=== PATIENT | female | born 1935 | race Caucasian/White ===

== ENCOUNTER 2016-05-22 16:32 | Outpatient (RCR) | payer MEDICARE ==
[2016-05-22] VITALS (15 sets, daily range): BP systolic 136–165; BP diastolic 54–74
[~2016-05-22] VITALS: Ht 154.9 cm; Wt 53.6 kg
--- NOTE | 2016-05-22 16:36 | NUR ---
Pt. arrives to 314 for platelet transfusion, ambulatory. Assisted to chair.
[2016-05-22] MEDS ORDERED: SODIUM CHLORIDE 250 ML IV ONE (16:55)
[2016-05-22] MEDS ORDERED: diphenhydrAMINE 25 MG (BENADRYL) TABLET PO ONE (17:00)
[2016-05-22] MEDS ORDERED: SODIUM CHLORIDE FLUSH 10 ML SYR IV SCH (17:00)
[2016-05-22] MEDS ORDERED: ACETAMINOPHEN 325 MG TAB (TYLENOL) PO ONE (17:00)
--- NOTE | 2016-05-22 17:44 | NUR ---
IV has been started to [facility], pre-meds have been given. 1st unit of platelets started at this time.
--- NOTE | 2016-05-22 18:00 | NUR ---
Pt. tolerating transfusion well without s/s of reaction. Rate increased to 300ml/hr. Addendum: 05/22/16 at 1801 by Ingris Murillo RN Rate increased to 200ml/hr.
--- NOTE | 2016-05-22 19:03 | NUR ---
1st unit of platelets completed without s/s of transfusion reaction. VSS.
--- NOTE | 2016-05-22 19:17 | NUR ---
2nd unit platelets started at this time.
--- NOTE | 2016-05-22 19:25 | NUR ---
MrsBird ThayerShantel sitting in recliner with feet elevated, BP cuff right arm, talking, smiling, respirations even non labored, platelets infusing R ac @ 60 ml/hr, denies any complaints or needs at this time.
--- NOTE | 2016-05-22 20:35 | NUR ---
Mrs. Funes ambulated to elevator and out to vehicle accompanied by this RN.
--- NOTE | 2016-05-22 20:35 | NUR ---
Platelet infusion complete, VS taken and recorded. IV removed left AC, denies any complaints at this time.
== END 2016-08-20 | disposition home or self-care (01) ==
LOC: EUOP 16:32 → MED/SURG 16:32 → EUOP 20:35
PROVIDERS: ATTEND Internal Medicine Hematology & Oncology
DX: D69.6 Thrombocytopenia, unspecified (principal); D46.A Refractory cytopenia with multilineage dysplasia
CPT/HCPCS: 36415; 36430; 85007; 85027; 85049; 86900; 86901; A9270; J7050; P9037

== ENCOUNTER 2016-05-25 09:39 | Outpatient (RCR) | payer MEDICARE ==
[2016-05-25 09:54] LABS: MEAN CORPUSCULAR HEMOGLOBIN 29.7 PG (26.0-34.0); MEAN CORPUSCULAR HGB CONC 33.9 g/dL (31.0-37.0); MEAN CORPUSCULAR VOLUME 88 FL (80-100); MEAN PLATELET VOLUME 9.6 FL (6.0-9.5); WHITE BLOOD COUNT 1.62 10^3uL (4.0-11.0)
[2016-05-25 10:29] LABS: PLATELET COUNT 17 10^3uL (150-450)
[2016-05-25 10:32] LABS: BAND NEUTROPHILS % 0 % (0-6); EOSINOPHILS % 0 % (0-4); LYMPHOCYTES # 0.9 #; MONOCYTES # 0.1 #; MONOCYTES % 5 % (3-11); SEGMENTED NEUTROPHILS % 40 % (51-67); TOTAL CELLS COUNTED 100
[2016-05-25 10:33] LABS: ANISOCYTOSIS SLIGHT; HYPOCHROMASIA SLIGHT; MICROCYTOSIS SLIGHT; RBC MORPH SEE REFERENCE (NORMAL)
[2016-06-16 09:48] LABS: MEAN CORPUSCULAR HEMOGLOBIN 30.3 PG (26.0-34.0); MEAN CORPUSCULAR VOLUME 89 FL (80-100); MEAN PLATELET VOLUME 10.3 FL (6.0-9.5)
[2016-06-16 09:55] LABS: PLATELET COUNT 16 10^3uL (150-450); WHITE BLOOD COUNT 1.45 10^3uL (4.0-11.0)
[2016-06-16 10:04] LABS: BAND NEUTROPHILS % 5 % (0-6); EOSINOPHILS % 0 % (0-4); LYMPHOCYTES # 0.9 #; MONOCYTES % 2 % (3-11); RBC MORPH NORMAL (NORMAL); SEGMENTED NEUTROPHILS % 29 % (51-67); TOTAL CELLS COUNTED 100
[2016-06-23 10:06] LABS: MEAN CORPUSCULAR HEMOGLOBIN 30.4 PG (26.0-34.0); MEAN CORPUSCULAR HGB CONC 33.7 g/dL (31.0-37.0); MEAN CORPUSCULAR VOLUME 90 FL (80-100); MEAN PLATELET VOLUME 12.1 FL (6.0-9.5); WHITE BLOOD COUNT 1.65 10^3uL (4.0-11.0)
[2016-06-23 10:35] LABS: PLATELET COUNT 22 10^3uL (150-450)
[2016-06-23 10:58] LABS: BAND NEUTROPHILS % 0 % (0-6); EOSINOPHILS % 2 % (0-4); LYMPHOCYTES # 0.9 #; MONOCYTES # 0.1 #; MONOCYTES % 9 % (3-11); RBC MORPH SEE REFERENCE (NORMAL); SEGMENTED NEUTROPHILS % 33 % (51-67); TOTAL CELLS COUNTED 100
[2016-06-23 10:59] LABS: ANISOCYTOSIS SLIGHT; MICROCYTOSIS SLIGHT
[2016-06-26 09:22] LABS: MEAN CORPUSCULAR HEMOGLOBIN 30.7 PG (26.0-34.0); MEAN CORPUSCULAR HGB CONC 33.9 g/dL (31.0-37.0); MEAN CORPUSCULAR VOLUME 91 FL (80-100)
[2016-06-26 09:53] LABS: WHITE BLOOD COUNT 1.19 10^3uL (4.0-11.0)
[2016-06-26 09:54] LABS: BAND NEUTROPHILS % 0 % (0-6); LYMPHOCYTES # 0.9 #; PLATELET COUNT 11 10^3uL (150-450); SEGMENTED NEUTROPHILS % 16 % (51-67)
[2016-06-26 09:55] LABS: EOSINOPHILS % 2 % (0-4); MONOCYTES # 0.1 #; MONOCYTES % 5 % (3-11); RBC MORPH NORMAL (NORMAL); TOTAL CELLS COUNTED 100
[2016-07-03 10:07] LABS: MEAN CORPUSCULAR HEMOGLOBIN 30.7 PG (26.0-34.0); MEAN CORPUSCULAR HGB CONC 33.7 g/dL (31.0-37.0); MEAN CORPUSCULAR VOLUME 91 FL (80-100); MEAN PLATELET VOLUME 8.8 FL (6.0-9.5); PLATELET COUNT 45 10^3uL (150-450)
[2016-07-03 10:23] LABS: WHITE BLOOD COUNT 0.93 10^3uL (4.0-11.0)
[2016-07-03 10:59] LABS: BAND NEUTROPHILS % 3 % (0-6); EOSINOPHILS % 1 % (0-4); LYMPHOCYTES # 0.6 #; MONOCYTES % 5 % (3-11); SEGMENTED NEUTROPHILS % 26 % (51-67)
[2016-07-03 11:00] LABS: RBC MORPH SEE REFERENCE (NORMAL); TOTAL CELLS COUNTED 100
[2016-07-03 11:01] LABS: ANISOCYTOSIS SLIGHT
[2016-07-06 09:02] LABS: MEAN CORPUSCULAR VOLUME 91 FL (80-100); MEAN PLATELET VOLUME 9.3 FL (6.0-9.5); PLATELET COUNT 44 10^3uL (150-450)
[2016-07-06 10:07] LABS: WHITE BLOOD COUNT 1.12 10^3uL (4.0-11.0)
[2016-07-06 10:20] LABS: BAND NEUTROPHILS % 0 % (0-6); EOSINOPHILS % 0 % (0-4); LYMPHOCYTES # 0.9 #; MONOCYTES # 0.1 #; MONOCYTES % 8 % (3-11); RBC MORPH NORMAL (NORMAL); SEGMENTED NEUTROPHILS % 15 % (51-67); TOTAL CELLS COUNTED 100
[2016-07-06 10:24] LABS: ALBUMIN 3.9 g/dL (3.4-5.0); ANION GAP 16.2 MEQ/L (3-15); CALCULATED IONIZED CALCIUM 4.6 mg/dL (3.8-4.6); TOTAL PROTEIN 6.8 g/dL (6.4-8.5)
== END 2016-08-23 | disposition home or self-care (01) ==
LOC: LAB 09:39
PROVIDERS: ATTEND Internal Medicine Hematology & Oncology
DX: D53.9 Nutritional anemia, unspecified (principal); D46.A Refractory cytopenia with multilineage dysplasia
CPT/HCPCS: 36415; 80053; 85025

== ENCOUNTER 2016-07-01 08:45 | Outpatient (RCR) | payer MEDICARE ==
[2016-06-30 10:01] LABS: MEAN CORPUSCULAR HEMOGLOBIN 30.4 PG (26.0-34.0); MEAN CORPUSCULAR VOLUME 92 FL (80-100); MEAN PLATELET VOLUME 10.3 FL (6.0-9.5)
[2016-06-30 10:10] LABS: PLATELET COUNT 11 10^3uL (150-450); WHITE BLOOD COUNT 0.99 10^3uL (4.0-11.0)
[2016-06-30 10:18] LABS: BAND NEUTROPHILS % 1 % (0-6); EOSINOPHILS % 0 % (0-4); LYMPHOCYTES # 0.7 #; MONOCYTES % 1 % (3-11); RBC MORPH SEE REFERENCE (NORMAL); SEGMENTED NEUTROPHILS % 25 % (51-67); TOTAL CELLS COUNTED 100
[2016-06-30 10:19] LABS: ANISOCYTOSIS SLIGHT; HYPOCHROMASIA SLIGHT
[2016-07-01] VITALS (14 sets, daily range): BP systolic 108–149; BP diastolic 45–67
[~2016-07-01] VITALS: Ht 154.9 cm; Wt 55.5 kg
--- NOTE | 2016-07-01 08:56 | NUR ---
Pt. arrives to 341 ambulatory, using cane, for blood and platelet transfusion. Neutropenic precautions instituted for noted low WBC count.
[2016-07-01] MEDS ORDERED: LMX 4 KIT (LIDOCAINE 4% 5 GM TUBE/TRANSPARENT DRESSING) TOP PRN (09:06)
[2016-07-01] MEDS ORDERED: NS 250 ML (IVPB) BAG IV SCH (09:06)
[2016-07-01] MEDS ORDERED: SODIUM CHLORIDE FLUSH 3 ML SYR IV PRN (09:06)
[2016-07-01] MEDS ORDERED: ACETAMINOPHEN 325 MG TAB (TYLENOL) PO SCH (09:06)
[2016-07-01] MEDS ORDERED: diphenhydrAMINE 25 MG (BENADRYL) TABLET PO SCH (09:06)
[2016-07-01] MEDS ORDERED: SODIUM CHLORIDE FLUSH 10 ML SYR IV PRN (09:06)
--- NOTE | 2016-07-01 09:20 | NUR ---
20g IV started to RFA x1 attempt. Flushes well.
--- NOTE | 2016-07-01 09:40 | NUR ---
Bottled water received from kitchen for pt. to take premeds. Premeds given at this time.
--- NOTE | 2016-07-01 09:59 | NUR ---
1st unit PRBC started at this time at 125ml/hr to RFA. VSS.
--- NOTE | 2016-07-01 10:19 | NUR ---
Pt. tolerating infusion well, rate increased to 150ml/hr.
--- NOTE | 2016-07-01 12:11 | NUR ---
1st unit PRBC complete. Pt. tolerated without s/s of reaction.
--- NOTE | 2016-07-01 12:31 | NUR ---
1st unit platelets started at this time. VSS.
--- NOTE | 2016-07-01 12:41 | NUR ---
Pt. just back to chair from restroom. Addendum: 07/01/16 at 1241 by Ingris Murillo RN Amended: Links added.
--- NOTE | 2016-07-01 13:28 | NUR ---
1st unit platelets complete. VSS. Pt. tolerated without s/s of reaction.
--- NOTE | 2016-07-01 13:38 | NUR ---
Pt. dismissed to home at this time via WC, accompanied out by RN.
== END 2016-09-28 | disposition home or self-care (01) ==
LOC: ICU 08:45 → EUOP 08:45
PROVIDERS: ATTEND Internal Medicine Hematology & Oncology
DX: D46.A Refractory cytopenia with multilineage dysplasia (principal); D53.9 Nutritional anemia, unspecified
CPT/HCPCS: 36415; 36430; 85025; 86850; 86900; 86901; 86920; A9270; J7050; P9037; P9040

== ENCOUNTER → 2016-08-04 | Outpatient (REF) | payer MEDICARE ==
[2016-08-04 11:00] LABS: MEAN CORPUSCULAR HEMOGLOBIN 29.4 PG (26.0-34.0); MEAN CORPUSCULAR HGB CONC 33.1 g/dL (31.0-37.0); MEAN CORPUSCULAR VOLUME 89 FL (80-100); MEAN PLATELET VOLUME 10.3 FL (6.0-9.5); PLATELET COUNT 68 10^3uL (150-450)
[2016-08-04 11:53] LABS: ANISOCYTOSIS MODERATE; BAND NEUTROPHILS % 1 % (0-6); EOSINOPHILS % 0 % (0-4); HYPOCHROMASIA SLIGHT; LYMPHOCYTES # 0.5 #; MONOCYTES # 0.1 #; MONOCYTES % 11 % (3-11); RBC MORPH SEE REFERENCE (NORMAL); SEGMENTED NEUTROPHILS % 35 % (51-67); TOTAL CELLS COUNTED 100
== END ==
LOC: LAB 10:32
PROVIDERS: ATTEND Internal Medicine Hematology & Oncology
DX: D53.9 Nutritional anemia, unspecified (principal)
CPT/HCPCS: 85025

== ENCOUNTER → 2016-08-07 | Outpatient (REF) | payer MEDICARE ==
[2016-08-07 13:54] LABS: MEAN CORPUSCULAR HGB CONC 33.2 g/dL (31.0-37.0); MEAN CORPUSCULAR VOLUME 90 FL (80-100); MEAN PLATELET VOLUME 9.7 FL (6.0-9.5); PLATELET COUNT 76 10^3uL (150-450)
[2016-08-07 14:10] LABS: ANISOCYTOSIS MODERATE; BAND NEUTROPHILS % 0 % (0-6); EOSINOPHILS % 2 % (0-4); HYPOCHROMASIA SLIGHT; LYMPHOCYTES # 0.7 #; MONOCYTES % 0 % (3-11); POIKILOCYTOSIS SLIGHT; RBC MORPH SEE REFERENCE (NORMAL); SEGMENTED NEUTROPHILS % 39 % (51-67); TOTAL CELLS COUNTED 100
== END ==
LOC: LAB 13:39
PROVIDERS: ATTEND Internal Medicine Hematology & Oncology
DX: D53.9 Nutritional anemia, unspecified (principal)
CPT/HCPCS: 85025

== ENCOUNTER → 2016-08-11 | Outpatient (REF) | payer MEDICARE ==
[2016-08-11 13:50] LABS: MEAN CORPUSCULAR HGB CONC 34.2 g/dL (31.0-37.0); MEAN CORPUSCULAR VOLUME 88 FL (80-100); MEAN PLATELET VOLUME 9.7 FL (6.0-9.5); PLATELET COUNT 78 10^3uL (150-450)
[2016-08-11 13:57] LABS: BAND NEUTROPHILS % 0 % (0-6); EOSINOPHILS % 0 % (0-4); LYMPHOCYTES # 0.9 #; MONOCYTES % 0 % (3-11); SEGMENTED NEUTROPHILS % 25 % (51-67); TOTAL CELLS COUNTED 100
[2016-08-11 13:58] LABS: ANISOCYTOSIS MODERATE; HYPOCHROMASIA SLIGHT; RBC MORPH SEE REFERENCE (NORMAL)
== END ==
LOC: LAB 11:32
PROVIDERS: ATTEND Internal Medicine Hematology & Oncology
DX: D53.9 Nutritional anemia, unspecified (principal)
CPT/HCPCS: 85025

== ENCOUNTER → 2016-08-14 | Outpatient (REF) | payer MEDICARE ==
[2016-08-14 11:46] LABS: MEAN CORPUSCULAR VOLUME 89 FL (80-100); MEAN PLATELET VOLUME 9.9 FL (6.0-9.5); PLATELET COUNT 77 10^3uL (150-450)
[2016-08-14 12:10] LABS: BAND NEUTROPHILS % 1 % (0-6); EOSINOPHILS % 0 % (0-4); LYMPHOCYTES # 0.5 #; MONOCYTES % 7 % (3-11); SEGMENTED NEUTROPHILS % 32 % (51-67); TOTAL CELLS COUNTED 100; WHITE BLOOD COUNT 0.96 10^3uL (4.0-11.0)
[2016-08-14 13:39] LABS: RBC MORPH NORMAL (NORMAL)
== END ==
LOC: LAB 10:38
PROVIDERS: ATTEND Internal Medicine Hematology & Oncology
DX: D53.9 Nutritional anemia, unspecified (principal); D46.A Refractory cytopenia with multilineage dysplasia
CPT/HCPCS: 85025

== ENCOUNTER 2016-08-18 12:37 | Outpatient (RCR) | payer MEDICARE ==
[2016-08-19] VITALS (11 sets, daily range): BP systolic 120–143; BP diastolic 56–73
[2016-08-19] MEDS ORDERED: SODIUM CHLORIDE FLUSH 10 ML ONE (11:27)
[2016-08-19] MEDS ORDERED: SODIUM CHLORIDE 250 ML ONE (12:04)
[2016-08-19] MEDS ORDERED: SODIUM CHLORIDE FLUSH 3 ML SYR IV PRN (12:10)
[2016-08-19] MEDS ORDERED: diphenhydrAMINE 25 MG (BENADRYL) TABLET PO SCH (12:10)
[2016-08-19] MEDS ORDERED: LMX 4 KIT (LIDOCAINE 4% 5 GM TUBE/TRANSPARENT DRESSING) TOP PRN (12:10)
[2016-08-19] MEDS ORDERED: NS 250 ML (IVPB) BAG IV SCH (12:10)
[2016-08-19] MEDS ORDERED: ACETAMINOPHEN 325 MG TAB (TYLENOL) PO SCH (12:10)
[2016-08-19] MEDS ORDERED: SODIUM CHLORIDE FLUSH 10 ML SYR IV PRN (12:10)
== END 2016-08-19 17:07 | disposition home or self-care (01) ==
LOC: EUOP 12:37 → MED/SURG 08-19 12:06 → EUOP 08-19 17:07
PROVIDERS: ATTEND Internal Medicine Hematology & Oncology
DX: D64.9 Anemia, unspecified (principal)
CPT/HCPCS: 36415; 36430; 85014; 85018; 86850; 86900; 86901; 86920; A9270; J7050; P9040; 85025; 99218

== ENCOUNTER → 2016-08-18 | Outpatient (REF) | payer MEDICARE ==
[2016-08-18 10:39] LABS: MEAN CORPUSCULAR HGB CONC 33.7 g/dL (31.0-37.0); MEAN CORPUSCULAR VOLUME 90 FL (80-100); MEAN PLATELET VOLUME 9.6 FL (6.0-9.5); PLATELET COUNT 83 10^3uL (150-450)
[2016-08-18 10:56] LABS: MEAN CORPUSCULAR HEMOGLOBIN 30.2 PG (26.0-34.0)
[2016-08-18 10:58] LABS: BAND NEUTROPHILS % 2 % (0-6); EOSINOPHILS % 1 % (0-4); LYMPHOCYTES # 0.5 #; MONOCYTES % 9 % (3-11); SEGMENTED NEUTROPHILS % 28 % (51-67); TOTAL CELLS COUNTED 100; WHITE BLOOD COUNT 0.83 10^3uL (4.0-11.0)
[2016-08-18 10:59] LABS: RBC MORPH NORMAL (NORMAL)
== END ==
LOC: LAB 10:21
PROVIDERS: ATTEND Internal Medicine Hematology & Oncology
DX: D53.9 Nutritional anemia, unspecified (principal); D46.A Refractory cytopenia with multilineage dysplasia
CPT/HCPCS: 85025

== ENCOUNTER → 2016-08-21 | Outpatient (REF) | payer MEDICARE ==
[2016-08-21 11:11] LABS: MEAN CORPUSCULAR HEMOGLOBIN 29.9 PG (26.0-34.0); MEAN CORPUSCULAR HGB CONC 34.3 g/dL (31.0-37.0); MEAN CORPUSCULAR VOLUME 87 FL (80-100); MEAN PLATELET VOLUME 9.7 FL (6.0-9.5); PLATELET COUNT 78 10^3uL (150-450)
[2016-08-21 11:45] LABS: BAND NEUTROPHILS % 0 % (0-6); EOSINOPHILS % 0 % (0-4); LYMPHOCYTES # 0.5 #; MONOCYTES % 14 % (3-11); SEGMENTED NEUTROPHILS % 28 % (51-67); WHITE BLOOD COUNT 0.83 10^3uL (4.0-11.0)
[2016-08-21 11:46] LABS: ANISOCYTOSIS SLIGHT; POIKILOCYTOSIS SLIGHT; RBC MORPH SEE REFERENCE (NORMAL); TOTAL CELLS COUNTED 100
== END ==
LOC: LAB 10:46
PROVIDERS: ATTEND Internal Medicine Hematology & Oncology
DX: D53.9 Nutritional anemia, unspecified (principal)
CPT/HCPCS: 85025

== ENCOUNTER → 2016-08-25 | Outpatient (REF) | payer MEDICARE ==
[2016-08-25 10:23] LABS: MEAN CORPUSCULAR HEMOGLOBIN 29.4 PG (26.0-34.0); MEAN CORPUSCULAR HGB CONC 33.3 g/dL (31.0-37.0); MEAN CORPUSCULAR VOLUME 88 FL (80-100); MEAN PLATELET VOLUME 10.3 FL (6.0-9.5); PLATELET COUNT 65 10^3uL (150-450)
[2016-08-25 10:25] LABS: WHITE BLOOD COUNT 0.76 10^3uL (4.0-11.0)
[2016-08-25 10:26] LABS: ANISOCYTOSIS MARKED; BAND NEUTROPHILS % 0 % (0-6); EOSINOPHILS % 2 % (0-4); HYPOCHROMASIA SLIGHT; LYMPHOCYTES # 0.4 #; MONOCYTES % 6 % (3-11); RBC MORPH SEE REFERENCE (NORMAL); SEGMENTED NEUTROPHILS % 26 % (51-67); TOTAL CELLS COUNTED 100
== END ==
LOC: LAB 10:10
PROVIDERS: ATTEND Internal Medicine Hematology & Oncology
DX: D53.9 Nutritional anemia, unspecified (principal); D46.A Refractory cytopenia with multilineage dysplasia
CPT/HCPCS: 85025

== ENCOUNTER → 2016-08-28 | Outpatient (REF) | payer MEDICARE ==
[2016-08-28 11:09] LABS: MEAN CORPUSCULAR HEMOGLOBIN 29.9 PG (26.0-34.0); MEAN CORPUSCULAR VOLUME 88 FL (80-100); MEAN PLATELET VOLUME 9.5 FL (6.0-9.5); PLATELET COUNT 81 10^3uL (150-450)
[2016-08-28 11:13] LABS: ANISOCYTOSIS MODERATE; BAND NEUTROPHILS % 0 % (0-6); EOSINOPHILS % 1 % (0-4); HYPOCHROMASIA SLIGHT; LYMPHOCYTES # 0.5 #; MONOCYTES % 1 % (3-11); POIKILOCYTOSIS SLIGHT; RBC MORPH SEE REFERENCE (NORMAL); SEGMENTED NEUTROPHILS % 33 % (51-67); TOTAL CELLS COUNTED 100; WHITE BLOOD COUNT 0.87 10^3uL (4.0-11.0)
== END ==
LOC: LAB 10:32
PROVIDERS: ATTEND Internal Medicine Hematology & Oncology
DX: D53.9 Nutritional anemia, unspecified (principal); D46.A Refractory cytopenia with multilineage dysplasia
CPT/HCPCS: 85025

== ENCOUNTER → 2016-09-01 | Outpatient (REF) | payer MEDICARE ==
[2016-09-01 12:42] LABS: MEAN CORPUSCULAR HEMOGLOBIN 29.1 PG (26.0-34.0); MEAN CORPUSCULAR HGB CONC 32.9 g/dL (31.0-37.0); MEAN CORPUSCULAR VOLUME 89 FL (80-100); PLATELET COUNT 92 10^3uL (150-450)
[2016-09-01 13:48] LABS: WHITE BLOOD COUNT 0.87 10^3uL (4.0-11.0)
[2016-09-01 13:50] LABS: BAND NEUTROPHILS % 0 % (0-6); LYMPHOCYTES # 0.5 #; SEGMENTED NEUTROPHILS % 29 % (51-67)
[2016-09-01 13:51] LABS: ANISOCYTOSIS SLIGHT; EOSINOPHILS % 0 % (0-4); MONOCYTES % 11 % (3-11); RBC MORPH SEE REFERENCE (NORMAL); TOTAL CELLS COUNTED 100
== END ==
LOC: LAB 10:04
PROVIDERS: ATTEND Internal Medicine Hematology & Oncology
DX: D46.A Refractory cytopenia with multilineage dysplasia (principal); D53.9 Nutritional anemia, unspecified
CPT/HCPCS: 85025

== ENCOUNTER → 2016-09-04 | Outpatient (REF) | payer MEDICARE ==
[2016-09-04 11:03] LABS: MEAN CORPUSCULAR HGB CONC 33.5 g/dL (31.0-37.0); MEAN CORPUSCULAR VOLUME 90 FL (80-100); MEAN PLATELET VOLUME 9.4 FL (6.0-9.5); PLATELET COUNT 109 10^3uL (150-450)
[2016-09-04 11:26] LABS: BAND NEUTROPHILS % 0 % (0-6); SEGMENTED NEUTROPHILS % 18 % (51-67); WHITE BLOOD COUNT 1.06 10^3uL (4.0-11.0)
[2016-09-04 11:27] LABS: ANISOCYTOSIS SLIGHT; EOSINOPHILS % 0 % (0-4); HYPOCHROMASIA SLIGHT; LYMPHOCYTES # 0.6 #; MONOCYTES # 0.2 #; MONOCYTES % 15 % (3-11); RBC MORPH SEE REFERENCE (NORMAL); TOTAL CELLS COUNTED 100
== END ==
LOC: LAB 10:36
PROVIDERS: ATTEND Internal Medicine Hematology & Oncology
DX: D53.9 Nutritional anemia, unspecified (principal); D46.A Refractory cytopenia with multilineage dysplasia
CPT/HCPCS: 85025

== ENCOUNTER → 2016-09-08 | Outpatient (REF) | payer MEDICARE ==
[2016-09-08 09:57] LABS: MEAN CORPUSCULAR HEMOGLOBIN 30.2 PG (26.0-34.0); MEAN CORPUSCULAR HGB CONC 33.1 g/dL (31.0-37.0); MEAN CORPUSCULAR VOLUME 91 FL (80-100); MEAN PLATELET VOLUME 9.4 FL (6.0-9.5); PLATELET COUNT 111 10^3uL (150-450)
[2016-09-08 10:16] LABS: WHITE BLOOD COUNT 0.89 10^3uL (4.0-11.0)
[2016-09-08 10:18] LABS: ANISOCYTOSIS MODERATE; BAND NEUTROPHILS % 1 % (0-6); EOSINOPHILS % 0 % (0-4); LYMPHOCYTES # 0.6 #; MONOCYTES % 12 % (3-11); RBC MORPH SEE REFERENCE (NORMAL); SEGMENTED NEUTROPHILS % 17 % (51-67); TOTAL CELLS COUNTED 100
== END ==
LOC: LAB 09:37
PROVIDERS: ATTEND Internal Medicine Hematology & Oncology
DX: D53.9 Nutritional anemia, unspecified (principal); D46.A Refractory cytopenia with multilineage dysplasia
CPT/HCPCS: 85025

== ENCOUNTER → 2016-09-11 | Outpatient (REF) | payer MEDICARE ==
[2016-09-11 10:30] LABS: MEAN CORPUSCULAR HEMOGLOBIN 30.4 PG (26.0-34.0); MEAN CORPUSCULAR VOLUME 92 FL (80-100); MEAN PLATELET VOLUME 9.7 FL (6.0-9.5); PLATELET COUNT 108 10^3uL (150-450)
[2016-09-11 10:37] LABS: BAND NEUTROPHILS % 0 % (0-6); EOSINOPHILS % 1 % (0-4); LYMPHOCYTES # 0.6 #; MONOCYTES % 13 % (3-11); RBC MORPH SEE REFERENCE (NORMAL); SEGMENTED NEUTROPHILS % 23 % (51-67); TOTAL CELLS COUNTED 100
[2016-09-11 10:38] LABS: ANISOCYTOSIS MODERATE; HYPOCHROMASIA SLIGHT; POIKILOCYTOSIS SLIGHT
[2016-09-11 10:50] LABS: WHITE BLOOD COUNT 0.99 10^3uL (4.0-11.0)
== END ==
LOC: LAB 10:11
PROVIDERS: ATTEND Internal Medicine Hematology & Oncology
DX: D46.A Refractory cytopenia with multilineage dysplasia (principal); D53.9 Nutritional anemia, unspecified
CPT/HCPCS: 85025

== ENCOUNTER 2016-09-15 14:25 | Outpatient (RCR) | payer MEDICARE ==
[2016-09-25 15:25] LABS: MEAN CORPUSCULAR HGB CONC 32.3 g/dL (31.0-37.0); MEAN PLATELET VOLUME 9.9 FL (6.0-9.5); PLATELET COUNT 120 10^3uL (150-450)
[2016-09-25 15:43] LABS: MEAN CORPUSCULAR HEMOGLOBIN 31.9 PG (26.0-34.0); MEAN CORPUSCULAR VOLUME 99 FL (80-100)
[2016-09-25 15:45] LABS: WHITE BLOOD COUNT 1.34 10^3uL (4.0-11.0)
[2016-09-25 15:46] LABS: BAND NEUTROPHILS % 2 % (0-6); EOSINOPHILS % 0 % (0-4); LYMPHOCYTES # 0.8 #; MONOCYTES # 0.1 #; MONOCYTES % 11 % (3-11); SEGMENTED NEUTROPHILS % 27 % (51-67); TOTAL CELLS COUNTED 100
[2016-09-25 15:47] LABS: ANISOCYTOSIS MARKED; POIKILOCYTOSIS SLIGHT; RBC MORPH SEE REFERENCE (NORMAL)
== END 2016-12-14 | disposition home or self-care (01) ==
LOC: EUOP 14:25
PROVIDERS: ATTEND Internal Medicine Hematology & Oncology
DX: D46.9 Myelodysplastic syndrome, unspecified (principal); D64.9 Anemia, unspecified
CPT/HCPCS: 36415; 85014; 85018; 85025

== ENCOUNTER → 2016-09-15 | Outpatient (REF) | payer MEDICARE ==
[2016-09-15 11:25] LABS: MEAN CORPUSCULAR HEMOGLOBIN 30.3 PG (26.0-34.0); MEAN CORPUSCULAR HGB CONC 32.5 g/dL (31.0-37.0); MEAN CORPUSCULAR VOLUME 93 FL (80-100); MEAN PLATELET VOLUME 10.3 FL (6.0-9.5); PLATELET COUNT 103 10^3uL (150-450)
[2016-09-15 11:53] LABS: WHITE BLOOD COUNT 1.03 10^3uL (4.0-11.0)
[2016-09-15 11:54] LABS: ANISOCYTOSIS MARKED; BAND NEUTROPHILS % 0 % (0-6); EOSINOPHILS % 0 % (0-4); HYPOCHROMASIA SLIGHT; LYMPHOCYTES # 0.4 #; MONOCYTES # 0.2 #; MONOCYTES % 16 % (3-11); POIKILOCYTOSIS SLIGHT; RBC MORPH SEE REFERENCE (NORMAL); SEGMENTED NEUTROPHILS % 37 % (51-67); TOTAL CELLS COUNTED 100
== END ==
LOC: LAB 10:44
PROVIDERS: ATTEND Internal Medicine Hematology & Oncology
DX: D46.A Refractory cytopenia with multilineage dysplasia (principal); D53.9 Nutritional anemia, unspecified
CPT/HCPCS: 85025

== ENCOUNTER → 2016-09-18 | Outpatient (REF) | payer MEDICARE ==
[2016-09-18 11:05] LABS: MEAN CORPUSCULAR HGB CONC 32.8 g/dL (31.0-37.0); MEAN CORPUSCULAR VOLUME 94 FL (80-100); MEAN PLATELET VOLUME 9.6 FL (6.0-9.5); PLATELET COUNT 117 10^3uL (150-450)
[2016-09-18 11:27] LABS: MEAN CORPUSCULAR HEMOGLOBIN 30.8 PG (26.0-34.0); WHITE BLOOD COUNT 0.86 10^3uL (4.0-11.0)
[2016-09-18 11:52] LABS: BAND NEUTROPHILS % 0 % (0-6); EOSINOPHILS % 0 % (0-4); LYMPHOCYTES # 0.5 #; MONOCYTES % 10 % (3-11); RBC MORPH SEE REFERENCE (NORMAL); SEGMENTED NEUTROPHILS % 30 % (51-67); TOTAL CELLS COUNTED 100
[2016-09-18 11:53] LABS: ANISOCYTOSIS SLIGHT
== END ==
LOC: LAB 10:53
PROVIDERS: ATTEND Internal Medicine Hematology & Oncology
DX: D46.A Refractory cytopenia with multilineage dysplasia (principal); D53.9 Nutritional anemia, unspecified
CPT/HCPCS: 85025

== ENCOUNTER → 2016-09-22 | Outpatient (REF) | payer MEDICARE ==
[2016-09-22 13:05] LABS: MEAN CORPUSCULAR HGB CONC 33.3 g/dL (31.0-37.0); MEAN CORPUSCULAR VOLUME 95 FL (80-100); MEAN PLATELET VOLUME 9.8 FL (6.0-9.5); PLATELET COUNT 124 10^3uL (150-450)
[2016-09-22 13:22] LABS: BAND NEUTROPHILS % 0 % (0-6); EOSINOPHILS % 1 % (0-4); LYMPHOCYTES # 0.7 #; MEAN CORPUSCULAR HEMOGLOBIN 31.7 PG (26.0-34.0); MONOCYTES % 2 % (3-11); RBC MORPH SEE REFERENCE (NORMAL); SEGMENTED NEUTROPHILS % 37 % (51-67); TOTAL CELLS COUNTED 100
[2016-09-22 13:23] LABS: ANISOCYTOSIS MODERATE; HYPOCHROMASIA SLIGHT; POIKILOCYTOSIS SLIGHT
== END ==
LOC: LAB 12:34
PROVIDERS: ATTEND Internal Medicine Hematology & Oncology
DX: D46.A Refractory cytopenia with multilineage dysplasia (principal); D53.9 Nutritional anemia, unspecified
CPT/HCPCS: 85025

== ENCOUNTER → 2016-09-25 | Outpatient (REF) | payer MEDICARE ==
[2016-09-25 10:38] LABS: MEAN CORPUSCULAR HGB CONC 32.2 g/dL (31.0-37.0); MEAN CORPUSCULAR VOLUME 96 FL (80-100); MEAN PLATELET VOLUME 9.5 FL (6.0-9.5); PLATELET COUNT 107 10^3uL (150-450)
[2016-09-25 10:53] LABS: MEAN CORPUSCULAR HEMOGLOBIN 30.9 PG (26.0-34.0); WHITE BLOOD COUNT 0.89 10^3uL (4.0-11.0)
[2016-09-25 10:54] LABS: ANISOCYTOSIS MODERATE; BAND NEUTROPHILS % 0 % (0-6); EOSINOPHILS % 0 % (0-4); HYPOCHROMASIA MODERATE; LYMPHOCYTES # 0.5 #; MONOCYTES % 3 % (3-11); POIKILOCYTOSIS SLIGHT; RBC MORPH SEE REFERENCE (NORMAL); SEGMENTED NEUTROPHILS % 36 % (51-67); TOTAL CELLS COUNTED 100
== END ==
LOC: LAB 10:25
PROVIDERS: ATTEND Internal Medicine Hematology & Oncology
DX: D53.9 Nutritional anemia, unspecified (principal)
CPT/HCPCS: 85025

== ENCOUNTER 2016-09-29 11:56 | Outpatient (RCR) | payer MEDICARE ==
[~2016-09-29] VITALS: Ht 154.9 cm; Wt 50.5 kg
[2016-09-30] VITALS (16 sets, daily range): BP systolic 116–135; BP diastolic 49–61
[2016-09-30] MEDS ORDERED: LMX 4 KIT (LIDOCAINE 4% 5 GM TUBE/TRANSPARENT DRESSING) TOP PRN (10:00)
[2016-09-30] MEDS ORDERED: SODIUM CHLORIDE FLUSH 3 ML SYR IV PRN (10:00)
[2016-09-30] MEDS ORDERED: diphenhydrAMINE 25 MG (BENADRYL) TABLET PO SCH (10:00)
[2016-09-30] MEDS ORDERED: NS 250 ML (IVPB) BAG IV SCH (10:00)
[2016-09-30] MEDS ORDERED: SODIUM CHLORIDE FLUSH 10 ML SYR IV PRN (10:00)
[2016-09-30] MEDS ORDERED: ACETAMINOPHEN 325 MG TAB (TYLENOL) PO SCH (10:00)
--- NOTE | 2016-09-30 11:07 | NUR ---
Pt. arrives at 1047 from admissions via for blood transfusion. Premeds given - see EMAR. 20g IV started to LFA x1 attempt. VSS.
--- NOTE | 2016-09-30 11:13 | NUR ---
1st unit LR-irradiated PRBC started at this time.
--- NOTE | 2016-09-30 11:32 | NUR ---
Pt. tolerating transfusion well. Denies dyspnea, chills, blurry vision or other s/s of reaction. Remains afebrile. VSS. Rate increased to 150ml/hr.
--- NOTE | 2016-09-30 13:26 | NUR ---
1st unit PRBC complete. Pt. tolerated infusion well. VSS.
--- NOTE | 2016-09-30 13:40 | NUR ---
2nd unit LR-irradiated PRBC initiated at this time. VSS.
--- NOTE | 2016-09-30 15:58 | NUR ---
2nd unit PRBC complete. Pt. tolerated well, without s/s of reaction.
--- NOTE | 2016-09-30 16:10 | NUR ---
Pt. discharged to home via WC with belongings, accompanied out by RN and friend.
== END 2016-09-30 16:10 | disposition home or self-care (01) ==
LOC: EUOP 11:56 → ICU 09-30 10:39 → EUOP 09-30 16:10
PROVIDERS: ATTEND Internal Medicine Hematology & Oncology
DX: D46.9 Myelodysplastic syndrome, unspecified (principal); D63.8 Anemia in other chronic diseases classified elsewhere
CPT/HCPCS: 36415; 36430; 85014; 85018; 86850; 86900; 86901; 86920; A9270; J7050; P9040

== ENCOUNTER → 2016-09-29 | Outpatient (REF) | payer MEDICARE ==
[2016-09-29 10:50] LABS: MEAN CORPUSCULAR HGB CONC 32.5 g/dL (31.0-37.0); MEAN PLATELET VOLUME 9.7 FL (6.0-9.5); PLATELET COUNT 115 10^3uL (150-450)
[2016-09-29 11:05] LABS: MEAN CORPUSCULAR HEMOGLOBIN 31.7 PG (26.0-34.0); MEAN CORPUSCULAR VOLUME 98 FL (80-100); WHITE BLOOD COUNT 0.74 10^3uL (4.0-11.0)
[2016-09-29 11:19] LABS: SEGMENTED NEUTROPHILS % 21 % (51-67)
[2016-09-29 11:20] LABS: ANISOCYTOSIS MARKED; BAND NEUTROPHILS % 1 % (0-6); EOSINOPHILS % 0 % (0-4); HYPOCHROMASIA SLIGHT; LYMPHOCYTES # 0.5 #; MONOCYTES % 11 % (3-11); RBC MORPH SEE REFERENCE (NORMAL); TOTAL CELLS COUNTED 100
== END ==
LOC: LAB 10:15
PROVIDERS: ATTEND Internal Medicine Hematology & Oncology
DX: D46.A Refractory cytopenia with multilineage dysplasia (principal); D53.9 Nutritional anemia, unspecified
CPT/HCPCS: 85025

== ENCOUNTER → 2016-10-02 | Outpatient (REF) | payer MEDICARE ==
[2016-10-02 10:10] LABS: MEAN CORPUSCULAR HEMOGLOBIN 30.8 PG (26.0-34.0); MEAN CORPUSCULAR HGB CONC 33.2 g/dL (31.0-37.0); MEAN CORPUSCULAR VOLUME 93 FL (80-100); MEAN PLATELET VOLUME 9.7 FL (6.0-9.5); PLATELET COUNT 103 10^3uL (150-450)
[2016-10-02 10:55] LABS: WHITE BLOOD COUNT 1.02 10^3uL (4.0-11.0)
[2016-10-02 10:56] LABS: BAND NEUTROPHILS % 1 % (0-6); EOSINOPHILS % 2 % (0-4); LYMPHOCYTES # 0.6 #; MONOCYTES # 0.1 #; MONOCYTES % 7 % (3-11); SEGMENTED NEUTROPHILS % 30 % (51-67)
[2016-10-02 10:57] LABS: ANISOCYTOSIS MARKED; RBC MORPH SEE REFERENCE (NORMAL); TOTAL CELLS COUNTED 100
== END ==
LOC: LAB 09:45
PROVIDERS: ATTEND Internal Medicine Hematology & Oncology
DX: D46.A Refractory cytopenia with multilineage dysplasia (principal); D53.9 Nutritional anemia, unspecified
CPT/HCPCS: 85025

== ENCOUNTER → 2016-10-06 | Outpatient (REF) | payer MEDICARE ==
[2016-10-06 11:40] LABS: MEAN CORPUSCULAR HEMOGLOBIN 30.9 PG (26.0-34.0); MEAN CORPUSCULAR HGB CONC 32.6 g/dL (31.0-37.0); MEAN CORPUSCULAR VOLUME 95 FL (80-100); MEAN PLATELET VOLUME 9.7 FL (6.0-9.5); PLATELET COUNT 74 10^3uL (150-450)
[2016-10-06 11:47] LABS: WHITE BLOOD COUNT 1.19 10^3uL (4.0-11.0)
[2016-10-06 11:48] LABS: ANISOCYTOSIS MODERATE; BAND NEUTROPHILS % 0 % (0-6); EOSINOPHILS % 1 % (0-4); HYPOCHROMASIA SLIGHT; LYMPHOCYTES # 0.7 #; MONOCYTES % 3 % (3-11); POIKILOCYTOSIS SLIGHT; RBC MORPH SEE REFERENCE (NORMAL); SEGMENTED NEUTROPHILS % 29 % (51-67); TOTAL CELLS COUNTED 100
== END ==
LOC: LAB 11:20
PROVIDERS: ATTEND Internal Medicine Hematology & Oncology
DX: D46.A Refractory cytopenia with multilineage dysplasia (principal); D53.9 Nutritional anemia, unspecified
CPT/HCPCS: 85025

== ENCOUNTER → 2016-10-09 | Outpatient (REF) | payer MEDICARE ==
[2016-10-09 09:45] LABS: MEAN CORPUSCULAR HEMOGLOBIN 30.4 PG (26.0-34.0); MEAN CORPUSCULAR HGB CONC 32.1 g/dL (31.0-37.0); MEAN CORPUSCULAR VOLUME 95 FL (80-100); MEAN PLATELET VOLUME 10.4 FL (6.0-9.5); PLATELET COUNT 103 10^3uL (150-450)
[2016-10-09 09:47] LABS: WHITE BLOOD COUNT 1.13 10^3uL (4.0-11.0)
[2016-10-09 09:53] LABS: ANISOCYTOSIS MODERATE; BAND NEUTROPHILS % 1 % (0-6); EOSINOPHILS % 0 % (0-4); HYPOCHROMASIA MODERATE; LYMPHOCYTES # 0.5 #; MONOCYTES # 0.1 #; MONOCYTES % 6 % (3-11); POIKILOCYTOSIS SLIGHT; RBC MORPH SEE REFERENCE (NORMAL); SEGMENTED NEUTROPHILS % 46 % (51-67); TOTAL CELLS COUNTED 100
== END ==
LOC: LAB 09:23
PROVIDERS: ATTEND Internal Medicine Hematology & Oncology
DX: D46.A Refractory cytopenia with multilineage dysplasia (principal); D53.9 Nutritional anemia, unspecified
CPT/HCPCS: 85025

== ENCOUNTER → 2016-10-13 | Outpatient (REF) | payer MEDICARE ==
[2016-10-13 09:38] LABS: MEAN CORPUSCULAR HEMOGLOBIN 30.8 PG (26.0-34.0); MEAN CORPUSCULAR HGB CONC 32.2 g/dL (31.0-37.0); MEAN CORPUSCULAR VOLUME 96 FL (80-100); MEAN PLATELET VOLUME 10.4 FL (6.0-9.5); PLATELET COUNT 101 10^3uL (150-450)
[2016-10-13 10:04] LABS: WHITE BLOOD COUNT 1.28 10^3uL (4.0-11.0)
[2016-10-13 10:07] LABS: BAND NEUTROPHILS % 0 % (0-6); EOSINOPHILS % 0 % (0-4); LYMPHOCYTES # 0.6 #; MONOCYTES # 0.1 #; MONOCYTES % 10 % (3-11)
[2016-10-13 10:08] LABS: ANISOCYTOSIS MODERATE; HYPOCHROMASIA SLIGHT; POIKILOCYTOSIS SLIGHT; RBC MORPH SEE REFERENCE (NORMAL); SEGMENTED NEUTROPHILS % 38 % (51-67); TOTAL CELLS COUNTED 100
== END ==
LOC: LAB 09:27
PROVIDERS: ATTEND Internal Medicine Hematology & Oncology
DX: D53.9 Nutritional anemia, unspecified (principal)
CPT/HCPCS: 85025

== ENCOUNTER → 2016-10-16 | Outpatient (REF) | payer MEDICARE ==
[2016-10-16 11:07] LABS: MEAN CORPUSCULAR HEMOGLOBIN 30.8 PG (26.0-34.0); MEAN PLATELET VOLUME 9.9 FL (6.0-9.5); PLATELET COUNT 101 10^3uL (150-450)
[2016-10-16 11:51] LABS: MEAN CORPUSCULAR HGB CONC 31.5 g/dL (31.0-37.0); MEAN CORPUSCULAR VOLUME 98 FL (80-100); WHITE BLOOD COUNT 1.04 10^3uL (4.0-11.0)
[2016-10-16 12:07] LABS: BAND NEUTROPHILS % 0 % (0-6); EOSINOPHILS % 2 % (0-4); LYMPHOCYTES # 0.4 #; MONOCYTES % 4 % (3-11); SEGMENTED NEUTROPHILS % 45 % (51-67); TOTAL CELLS COUNTED 100
[2016-10-16 12:08] LABS: ANISOCYTOSIS MARKED; HYPOCHROMASIA SLIGHT; RBC MORPH SEE REFERENCE (NORMAL)
== END ==
LOC: LAB 10:41
PROVIDERS: ATTEND Internal Medicine Hematology & Oncology
DX: D64.9 Anemia, unspecified (principal)
CPT/HCPCS: 85025

== ENCOUNTER 2016-10-20 16:37 | Outpatient (RCR) | payer MEDICARE ==
[~2016-10-20] VITALS: Ht 154.9 cm; Wt 50.5 kg
[2016-10-21] VITALS (16 sets, daily range): BP systolic 106–175; BP diastolic 47–82
--- NOTE | 2016-10-21 11:40 | NUR ---
Pt. received to 341 for blood transfusion. Arrived ambulatory, accompanied by family. Addendum: 10/21/16 at 1144 by Ingris Murillo RN Correction: arrived by
[2016-10-21] MEDS ORDERED: SODIUM CHLORIDE FLUSH 10 ML SYR IV PRN (11:55)
[2016-10-21] MEDS ORDERED: diphenhydrAMINE 25 MG (BENADRYL) TABLET PO SCH (11:55)
[2016-10-21] MEDS ORDERED: SODIUM CHLORIDE FLUSH 3 ML SYR IV PRN (11:55)
[2016-10-21] MEDS ORDERED: ACETAMINOPHEN 325 MG TAB (TYLENOL) PO SCH (11:55)
[2016-10-21] MEDS ORDERED: LMX 4 KIT (LIDOCAINE 4% 5 GM TUBE/TRANSPARENT DRESSING) TOP PRN (11:55)
[2016-10-21] MEDS ORDERED: NS 250 ML (IVPB) BAG IV SCH (11:55)
--- NOTE | 2016-10-21 14:30 | NUR ---
1st unit of PRBC completed.
--- NOTE | 2016-10-21 14:35 | NUR ---
2nd unit of PRBC started at 1435 unit # [id number].
--- NOTE | 2016-10-21 16:35 | NUR ---
2nd unit of PRBCs completed and flush bag infusing at this time.
--- NOTE | 2016-10-21 16:50 | NUR ---
IV catheter removed and drg applied using gauze and coban.
--- NOTE | 2016-10-21 17:10 | NUR ---
Pt discharge from unit per w/c and accompanied by Ronal HERNÁNDEZ.
== END 2016-12-30 18:31 | disposition home or self-care (01) ==
LOC: EUOP 16:37 → ICU 10-21 11:35 → EUOP 10-21 17:10
PROVIDERS: ATTEND Internal Medicine Hematology & Oncology
DX: D64.9 Anemia, unspecified (principal)
CPT/HCPCS: 36415; 36430; 85014; 85018; 86850; 86900; 86901; 86920; A9270; J7050; P9040

== ENCOUNTER → 2016-10-20 | Outpatient (REF) | payer MEDICARE ==
[2016-10-20 12:03] LABS: MEAN CORPUSCULAR HEMOGLOBIN 30.5 PG (26.0-34.0); MEAN PLATELET VOLUME 10.5 FL (6.0-9.5); PLATELET COUNT 132 10^3uL (150-450)
[2016-10-20 12:08] LABS: WHITE BLOOD COUNT 1.15 10^3uL (4.0-11.0)
[2016-10-20 12:09] LABS: MEAN CORPUSCULAR HGB CONC 30.9 g/dL (31.0-37.0); MEAN CORPUSCULAR VOLUME 99 FL (80-100)
[2016-10-20 12:10] LABS: BAND NEUTROPHILS % 0 % (0-6); EOSINOPHILS % 2 % (0-4); HYPOCHROMASIA MARKED; LYMPHOCYTES # 0.4 #; MONOCYTES # 0.1 #; MONOCYTES % 12 % (3-11); POIKILOCYTOSIS MODERATE; RBC MORPH SEE REFERENCE (NORMAL); SEGMENTED NEUTROPHILS % 50 % (51-67); TOTAL CELLS COUNTED 100
[2016-10-20 12:11] LABS: ANISOCYTOSIS MARKED
== END ==
LOC: LAB 11:53
PROVIDERS: ATTEND Internal Medicine Hematology & Oncology
DX: D46.9 Myelodysplastic syndrome, unspecified (principal)
CPT/HCPCS: 85025

== ENCOUNTER → 2016-10-23 | Outpatient (REF) | payer MEDICARE ==
[2016-10-23 11:06] LABS: MEAN CORPUSCULAR HGB CONC 32.7 g/dL (31.0-37.0); MEAN CORPUSCULAR VOLUME 96 FL (80-100); MEAN PLATELET VOLUME 10.4 FL (6.0-9.5); PLATELET COUNT 122 10^3uL (150-450)
[2016-10-23 11:13] LABS: WHITE BLOOD COUNT 1.34 10^3uL (4.0-11.0)
[2016-10-23 11:14] LABS: MEAN CORPUSCULAR HEMOGLOBIN 31.5 PG (26.0-34.0)
[2016-10-23 12:08] LABS: BAND NEUTROPHILS % 0 % (0-6); EOSINOPHILS % 0 % (0-4); MONOCYTES % 4 % (3-11); RBC MORPH SEE REFERENCE (NORMAL)
[2016-10-23 12:09] LABS: ANISOCYTOSIS SLIGHT
[2016-10-23 12:10] LABS: LYMPHOCYTES # 0.5 #; SEGMENTED NEUTROPHILS % 58 % (51-67); TOTAL CELLS COUNTED 100
== END ==
LOC: LAB 10:47
PROVIDERS: ATTEND Internal Medicine Hematology & Oncology
DX: D53.9 Nutritional anemia, unspecified (principal)
CPT/HCPCS: 85025

== ENCOUNTER → 2016-10-27 | Outpatient (REF) | payer MEDICARE ==
[2016-10-27 11:03] LABS: MEAN CORPUSCULAR HEMOGLOBIN 31.1 PG (26.0-34.0); MEAN PLATELET VOLUME 10.4 FL (6.0-9.5); PLATELET COUNT 101 10^3uL (150-450)
[2016-10-27 11:29] LABS: MEAN CORPUSCULAR HGB CONC 31.6 g/dL (31.0-37.0); MEAN CORPUSCULAR VOLUME 99 FL (80-100); WHITE BLOOD COUNT 0.94 10^3uL (4.0-11.0)
[2016-10-27 11:30] LABS: ANISOCYTOSIS MODERATE; BAND NEUTROPHILS % 0 % (0-6); EOSINOPHILS % 0 % (0-4); HYPOCHROMASIA SLIGHT; LYMPHOCYTES # 0.3 #; MONOCYTES % 9 % (3-11); RBC MORPH SEE REFERENCE (NORMAL); SEGMENTED NEUTROPHILS % 50 % (51-67); TOTAL CELLS COUNTED 100
== END ==
LOC: LAB 10:51
PROVIDERS: ATTEND Internal Medicine Hematology & Oncology
DX: D53.9 Nutritional anemia, unspecified (principal)
CPT/HCPCS: 85025

== ENCOUNTER → 2016-10-30 | Outpatient (REF) | payer MEDICARE ==
[2016-10-30 14:05] LABS: MEAN PLATELET VOLUME 10.2 FL (6.0-9.5); PLATELET COUNT 130 10^3uL (150-450)
[2016-10-30 14:39] LABS: MEAN CORPUSCULAR HEMOGLOBIN 31.6 PG (26.0-34.0); MEAN CORPUSCULAR VOLUME 99 FL (80-100); WHITE BLOOD COUNT 1.44 10^3uL (4.0-11.0)
[2016-10-30 15:00] LABS: ANISOCYTOSIS SLIGHT; BAND NEUTROPHILS % 0 % (0-6); EOSINOPHILS % 0 % (0-4); HYPOCHROMASIA SLIGHT; LYMPHOCYTES # 0.5 #; MONOCYTES # 0.1 #; MONOCYTES % 5 % (3-11); RBC MORPH SEE REFERENCE (NORMAL); SEGMENTED NEUTROPHILS % 60 % (51-67); TOTAL CELLS COUNTED 100
== END ==
LOC: LAB 13:46
PROVIDERS: ATTEND Internal Medicine Hematology & Oncology
DX: D46.A Refractory cytopenia with multilineage dysplasia (principal)
CPT/HCPCS: 85025

== ENCOUNTER → 2016-11-03 | Outpatient (REF) | payer MEDICARE ==
[2016-11-03 10:21] LABS: MEAN CORPUSCULAR HGB CONC 32.1 g/dL (31.0-37.0); MEAN PLATELET VOLUME 10.5 FL (6.0-9.5); PLATELET COUNT 118 10^3uL (150-450)
[2016-11-03 10:56] LABS: MEAN CORPUSCULAR HEMOGLOBIN 31.8 PG (26.0-34.0); MEAN CORPUSCULAR VOLUME 99 FL (80-100); WHITE BLOOD COUNT 0.98 10^3uL (4.0-11.0)
[2016-11-03 11:02] LABS: ANISOCYTOSIS MODERATE; BAND NEUTROPHILS % 3 % (0-6); EOSINOPHILS % 0 % (0-4); LYMPHOCYTES # 0.4 #; MONOCYTES % 6 % (3-11); RBC MORPH SEE REFERENCE (NORMAL); SEGMENTED NEUTROPHILS % 41 % (51-67); TOTAL CELLS COUNTED 100
== END ==
LOC: LAB 09:49
PROVIDERS: ATTEND Internal Medicine Hematology & Oncology
DX: D46.9 Myelodysplastic syndrome, unspecified (principal)
CPT/HCPCS: 85025

== ENCOUNTER → 2016-11-06 | Outpatient (REF) | payer MEDICARE ==
[2016-11-06 11:09] LABS: MEAN CORPUSCULAR HGB CONC 32.2 g/dL (31.0-37.0); MEAN PLATELET VOLUME 10.4 FL (6.0-9.5); PLATELET COUNT 113 10^3uL (150-450)
[2016-11-06 11:21] LABS: MEAN CORPUSCULAR HEMOGLOBIN 31.9 PG (26.0-34.0); MEAN CORPUSCULAR VOLUME 99 FL (80-100); WHITE BLOOD COUNT 0.86 10^3uL (4.0-11.0)
[2016-11-06 11:25] LABS: BAND NEUTROPHILS % 1 % (0-6); EOSINOPHILS % 0 % (0-4); LYMPHOCYTES # 0.5 #; MONOCYTES % 1 % (3-11); RBC MORPH SEE REFERENCE (NORMAL); SEGMENTED NEUTROPHILS % 35 % (51-67); TOTAL CELLS COUNTED 100
[2016-11-06 11:26] LABS: ANISOCYTOSIS MODERATE; HYPOCHROMASIA SLIGHT; POIKILOCYTOSIS SLIGHT
== END ==
LOC: LAB 10:37
PROVIDERS: ATTEND Emergency Medicine
DX: D53.9 Nutritional anemia, unspecified (principal)
CPT/HCPCS: 85025

== ENCOUNTER → 2016-11-10 | Outpatient (REF) | payer MEDICARE ==
[2016-11-10 10:43] LABS: MEAN PLATELET VOLUME 10.2 FL (6.0-9.5); PLATELET COUNT 121 10^3uL (150-450)
[2016-11-10 11:30] LABS: MEAN CORPUSCULAR HEMOGLOBIN 31.4 PG (26.0-34.0); MEAN CORPUSCULAR HGB CONC 31.7 g/dL (31.0-37.0); MEAN CORPUSCULAR VOLUME 99 FL (80-100); WHITE BLOOD COUNT 0.98 10^3uL (4.0-11.0)
[2016-11-10 11:54] LABS: ANISOCYTOSIS MODERATE; BAND NEUTROPHILS % 1 % (0-6); EOSINOPHILS % 2 % (0-4); HYPOCHROMASIA MODERATE; LYMPHOCYTES # 0.4 #; MONOCYTES % 8 % (3-11); RBC MORPH SEE REFERENCE (NORMAL); SEGMENTED NEUTROPHILS % 46 % (51-67); TOTAL CELLS COUNTED 100
[2016-11-10 12:00] LABS: NUCLEATED RED BLOOD CELLS 3
== END ==
LOC: LAB 10:00
PROVIDERS: ATTEND Internal Medicine Hematology & Oncology
DX: D53.9 Nutritional anemia, unspecified (principal)
CPT/HCPCS: 85025

== ENCOUNTER → 2016-11-13 | Outpatient (REF) | payer MEDICARE ==
[2016-11-13 10:59] LABS: MEAN CORPUSCULAR HGB CONC 31.9 g/dL (31.0-37.0); MEAN PLATELET VOLUME 10.5 FL (6.0-9.5); PLATELET COUNT 125 10^3uL (150-450)
[2016-11-13 11:27] LABS: BAND NEUTROPHILS % 0 % (0-6); MEAN CORPUSCULAR HEMOGLOBIN 31.4 PG (26.0-34.0); MEAN CORPUSCULAR VOLUME 98 FL (80-100); SEGMENTED NEUTROPHILS % 53 % (51-67)
[2016-11-13 11:28] LABS: EOSINOPHILS % 2 % (0-4); LYMPHOCYTES # 0.4 #; MONOCYTES % 4 % (3-11)
[2016-11-13 11:29] LABS: ANISOCYTOSIS SLIGHT; HYPOCHROMASIA MODERATE; RBC MORPH SEE REFERENCE (NORMAL); TOTAL CELLS COUNTED 100
== END ==
LOC: LAB 10:38
PROVIDERS: ATTEND Internal Medicine Hematology & Oncology
DX: D53.9 Nutritional anemia, unspecified (principal)
CPT/HCPCS: 85025

== ENCOUNTER → 2016-11-17 | Outpatient (REF) | payer MEDICARE ==
[2016-11-17 10:13] LABS: MEAN CORPUSCULAR HGB CONC 32.5 g/dL (31.0-37.0); MEAN CORPUSCULAR VOLUME 97 FL (80-100); MEAN PLATELET VOLUME 10.6 FL (6.0-9.5); PLATELET COUNT 127 10^3uL (150-450)
[2016-11-17 10:15] LABS: BAND NEUTROPHILS % 0 % (0-6); EOSINOPHILS % 0 % (0-4); LYMPHOCYTES # 0.4 #; MEAN CORPUSCULAR HEMOGLOBIN 31.6 PG (26.0-34.0); MONOCYTES % 0 % (3-11); SEGMENTED NEUTROPHILS % 42 % (51-67); TOTAL CELLS COUNTED 100; WHITE BLOOD COUNT 0.79 10^3uL (4.0-11.0)
[2016-11-17 10:16] LABS: ANISOCYTOSIS MODERATE; HYPOCHROMASIA SLIGHT; POIKILOCYTOSIS SLIGHT; POLYCHROMASIA SLIGHT; RBC MORPH SEE REFERENCE (NORMAL)
== END ==
LOC: LAB 10:00
PROVIDERS: ATTEND Internal Medicine Hematology & Oncology
DX: D53.9 Nutritional anemia, unspecified (principal)
CPT/HCPCS: 85025

== ENCOUNTER → 2016-11-20 | Outpatient (REF) | payer MEDICARE ==
[2016-11-20 14:26] LABS: MEAN CORPUSCULAR HGB CONC 32.7 g/dL (31.0-37.0); MEAN CORPUSCULAR VOLUME 96 FL (80-100); MEAN PLATELET VOLUME 10.8 FL (6.0-9.5); PLATELET COUNT 123 10^3uL (150-450)
[2016-11-20 14:53] LABS: MEAN CORPUSCULAR HEMOGLOBIN 31.5 PG (26.0-34.0)
[2016-11-20 14:58] LABS: BAND NEUTROPHILS % 3 % (0-6); LYMPHOCYTES # 0.7 #; SEGMENTED NEUTROPHILS % 33 % (51-67)
[2016-11-20 14:59] LABS: ANISOCYTOSIS MODERATE; EOSINOPHILS % 0 % (0-4); MONOCYTES # 0.1 #; MONOCYTES % 5 % (3-11); RBC MORPH SEE REFERENCE (NORMAL); TOTAL CELLS COUNTED 100
== END ==
LOC: LAB 13:29
PROVIDERS: ATTEND Internal Medicine Hematology & Oncology
DX: D46.A Refractory cytopenia with multilineage dysplasia (principal); D53.9 Nutritional anemia, unspecified
CPT/HCPCS: 85025

== ENCOUNTER → 2016-11-24 | Outpatient (REF) | payer MEDICARE ==
[2016-11-24 12:05] LABS: MEAN CORPUSCULAR HEMOGLOBIN 31.2 PG (26.0-34.0); MEAN CORPUSCULAR HGB CONC 32.4 g/dL (31.0-37.0); MEAN CORPUSCULAR VOLUME 96 FL (80-100); MEAN PLATELET VOLUME 10.4 FL (6.0-9.5); PLATELET COUNT 110 10^3uL (150-450)
[2016-11-24 12:39] LABS: ANISOCYTOSIS SLIGHT; BAND NEUTROPHILS % 2 % (0-6); EOSINOPHILS % 0 % (0-4); LYMPHOCYTES # 0.5 #; MONOCYTES % 4 % (3-11); RBC MORPH SEE REFERENCE (NORMAL); SEGMENTED NEUTROPHILS % 43 % (51-67); TOTAL CELLS COUNTED 100
== END ==
LOC: LAB 11:17
PROVIDERS: ATTEND Internal Medicine Hematology & Oncology
DX: D53.9 Nutritional anemia, unspecified (principal)
CPT/HCPCS: 85025

== ENCOUNTER → 2016-11-27 | Outpatient (REF) | payer MEDICARE ==
[2016-11-27 10:09] LABS: MEAN CORPUSCULAR HGB CONC 32.9 g/dL (31.0-37.0); MEAN CORPUSCULAR VOLUME 96 FL (80-100); MEAN PLATELET VOLUME 10.5 FL (6.0-9.5); PLATELET COUNT 122 10^3uL (150-450)
[2016-11-27 10:25] LABS: MEAN CORPUSCULAR HEMOGLOBIN 31.6 PG (26.0-34.0); WHITE BLOOD COUNT 0.76 10^3uL (4.0-11.0)
[2016-11-27 10:26] LABS: ANISOCYTOSIS SLIGHT; BAND NEUTROPHILS % 1 % (0-6); EOSINOPHILS % 1 % (0-4); LYMPHOCYTES # 0.4 #; MONOCYTES % 8 % (3-11); RBC MORPH SEE REFERENCE (NORMAL); SEGMENTED NEUTROPHILS % 32 % (51-67); TOTAL CELLS COUNTED 100
== END ==
LOC: LAB 09:57
PROVIDERS: ATTEND Internal Medicine Hematology & Oncology
DX: D53.9 Nutritional anemia, unspecified (principal)
CPT/HCPCS: 85025

== ENCOUNTER → 2016-12-01 | Outpatient (REF) | payer MEDICARE ==
[2016-12-01 09:33] LABS: MEAN CORPUSCULAR HEMOGLOBIN 31.1 PG (26.0-34.0); MEAN CORPUSCULAR HGB CONC 32.6 g/dL (31.0-37.0); MEAN CORPUSCULAR VOLUME 96 FL (80-100); MEAN PLATELET VOLUME 10.1 FL (6.0-9.5); PLATELET COUNT 128 10^3uL (150-450)
[2016-12-01 09:44] LABS: BAND NEUTROPHILS % 0 % (0-6); EOSINOPHILS % 0 % (0-4); LYMPHOCYTES # 0.5 #; MONOCYTES % 1 % (3-11); RBC MORPH SEE REFERENCE (NORMAL); SEGMENTED NEUTROPHILS % 31 % (51-67); TOTAL CELLS COUNTED 100; WHITE BLOOD COUNT 0.89 10^3uL (4.0-11.0)
[2016-12-01 09:45] LABS: ANISOCYTOSIS MODERATE; HYPOCHROMASIA MARKED; POIKILOCYTOSIS SLIGHT
== END ==
LOC: LAB 09:18
PROVIDERS: ATTEND Internal Medicine Hematology & Oncology
DX: D53.9 Nutritional anemia, unspecified (principal); D46.A Refractory cytopenia with multilineage dysplasia
CPT/HCPCS: 85007; 85027

== ENCOUNTER → 2016-12-08 | Outpatient (REF) | payer MEDICARE ==
[2016-12-08 10:34] LABS: MEAN CORPUSCULAR HGB CONC 33.3 g/dL (31.0-37.0); MEAN CORPUSCULAR VOLUME 95 FL (80-100); MEAN PLATELET VOLUME 10.1 FL (6.0-9.5); PLATELET COUNT 112 10^3uL (150-450)
[2016-12-08 10:58] LABS: MEAN CORPUSCULAR HEMOGLOBIN 31.7 PG (26.0-34.0); WHITE BLOOD COUNT 1.15 10^3uL (4.0-11.0)
[2016-12-08 10:59] LABS: ANISOCYTOSIS MODERATE; BAND NEUTROPHILS % 7 % (0-6); EOSINOPHILS % 0 % (0-4); LYMPHOCYTES # 0.5 #; MONOCYTES # 0.1 #; MONOCYTES % 8 % (3-11); RBC MORPH SEE REFERENCE (NORMAL); SEGMENTED NEUTROPHILS % 36 % (51-67); TOTAL CELLS COUNTED 100
== END ==
LOC: LAB 10:19
PROVIDERS: ATTEND Internal Medicine Hematology & Oncology
DX: D53.9 Nutritional anemia, unspecified (principal); D46.A Refractory cytopenia with multilineage dysplasia
CPT/HCPCS: 85025